=== PATIENT | female | born 1960 | race Caucasian/White ===

== ENCOUNTER → 2017-11-29 | Outpatient (CLI) | payer OTHER, BC ==
[~2017-11-29] MED LIST: AMBIEN CR12.5 MG PO; AMBIEN5 MG PO; ASPIR 8181 MG; BIOTIN PO; BIOTIN2500 MCG PO; CARAFATE1 GM PO; CEPHALEXIN500 MG PO; CYMBALTA30 MG PO; DEPAKOTE; DEPAKOTE ER500 MG PO; DIFLUCAN100 MG PO; DONNATAL E16.2 MG/5 PO; FENTANYL PATCH; FENTANYL1 EAC1 TD; GABAPENTIN100 MG PO; GINKGO BILOBA60 MG PO; HYDROCODON-ACE1 EA12 PO; KEFLEX500 MG PO; KLONOPIN1 MG PO; LAMICTAL100 MG PO; LAMICTAL200 MG PO; LAMOTRIGINE5 MG PO; LASIX40 MG PO; LEVAQUIN500 MG PO; MIDODRINE HCL2.5 MG PO; MIRALAX17 GM PO; MIRTAZAPINE15 MG PO; MULTI-VITAMIN1 EACH PO; NEURONTIN300 MG PO; NORCO 10-325 T1 EACH PO; PANTOPRAZOLE SO40 MG PO; PAROXETINE HCL20 MG PO; PAXIL20 MG PO; PENTOXIFYLLINE PO; PENTOXIFYLLINE400 MG PO; PRAVASTATIN SOD20 MG PO; PRAVASTATIN SOD40 MG PO; PROMETHAZINE HC25 M1 PO; PROTRIPTYLINE; REGLAN10 MG PO; SULFACETAMIDE; TIZANIDINE HCL2 MG PO; TIZANIDINE HCL4 M1 PO; TOPIRAMATE25 MG PO; TRAZODONE HCL150 MG PO; TRAZODONE HCL50 MG PO; ULTRAM50 MG PO; VITAMIN D1000 UNI1 PO; XANAX XR1 MG PO; XANAX XR2 MG PO; XANAX0.25 MG; XANAX1 MG PO; Z.0.AMBIEN CR12.5 MG; Z.0.LAMICTAL100 MG; Z.0.TRAZODONE HCL150 PO; Z.0.VITAMIN C500 MG PO; Z.0.ZOFRAN8 MG; Z.1.HYDROCODON-ACE1 PO; ZANAFLEX4 MG PO; ZOLPIDEM TARTRA10 MG PO; [UNRECOGNIZED DRUG - OTHER] PO; linzess PO
--- NOTE | 2017-11-29 16:21 | Diagnostic Imaging Report ---
EXAMINATION: Head CT HISTORY: Altered mental status COMPARISON: Head CT on 09/21/2017 TECHNIQUE: Multidetector axial images were obtained without contrast from the foramen magnum to the vertex . The images were reconstructed using brain and bone algorithms. Thin section brain images were reformatted into coronal and sagittal planes. Intravenous contrast: None. Motion/streaking artifact limits the evaluation of the skull base and posterior cranial fossa. FINDINGS: Parenchyma: 1. No abnormal densities. 2. No mass or hemorrhage. No CT evidence of acute territorial vascular insult. Extra-axial spaces:No abnormal density. No extra-axial fluid collections Brain volume: Normal for age. Ventricles: No hydrocephalus or displacement. Arteries: No density suggestive of thrombus. Dural sinuses: No abnormal density. Extra-axial spaces: No abnormal density. Foramen magnum: No mass, Chiari malformation, or basilar invagination. Sella: No obvious mass. Paranasal/mastoid sinuses: Imaged portions unremarkable. Skull/Scalp: No lytic or blastic lesions. No fractures. IMPRESSION: No intracranial abnormalities, no changes from head CT on 09/21/2017 Signed by: Dr. Patience Garzon M.D. on 11/29/2017 4:18 PM
== END ==
LOC: CT 14:57
PROVIDERS: ATTEND Family Medicine
DX: S06.0X0A Concussion without loss of consciousness, initial encounter (principal)
CPT/HCPCS: 70450

== ENCOUNTER 2017-12-12 18:20 | Observation (INO) | payer OTHER, BC ==
[~2017-12-12] VITALS: Ht 162.6 cm; Wt 104.3 kg
--- OUTSIDE RECORDS SUMMARY | 2017-12-12 18:24 | XMS REPORT ---
[facility] [place] Address Unknown Phone Unavailable Care Team Providers Care Culinary Assistant Name Role Phone NASIM RILEY Unavailable Unavailable MING CARMEN Unavailable Unavailable BINDU GARCIA Unavailable Unavailable Problems This patient has no known problems. Allergies, Adverse Reactions, Alerts This patient has no known allergies or adverse reactions. Medications This patient has no known medications. Results Test Description Test Time Test Comments Text Results Atomic Results Result Comments CT BRAIN WO [place] [address] Patient Name: CJ NGUYỄN MR #: [id number] : 1960 Age/Sex: 57/F Req #: [id number] Adm Physician: Ordered by: OSVALDO DAILEY, NASIM Tijerina MD Report #: [id number] Location: CT Room/Bed: Procedure: [id number] CT/CT BRAIN WO Exam Date: Exam Time: REPORT STATUS: Signed EXAMINATION: Head CT HISTORY: Altered mental status COMPARISON: Head CT on 09/21/2017 TECHNIQUE: Multidetector axial images were obtained without contrast from the foramen magnum to the vertex . The images were reconstructed using brain and bone algorithms. Thin section brain images were reformatted into coronal and sagittal planes. Intravenous contrast: None. Motion/streaking artifact limits the evaluation of the skull base and posterior cranial fossa. FINDINGS: Parenchyma: 1. No abnormal densities. 2. No mass or hemorrhage. No CT evidence of acute territorial vascular insult. Extra-axial spaces:No abnormal density. No extra-axial fluid collections Brain volume: Normal for age. Ventricles: No hydrocephalus or displacement. Arteries: No density suggestive of thrombus. Dural sinuses: No abnormal density. Extra-axial spaces: No abnormal density. Foramen magnum: No mass, Chiari malformation, or basilar invagination. Sella: No obvious mass. Paranasal/mastoid sinuses: Imaged portions unremarkable. Skull/ Scalp: No lytic or blastic lesions. No fractures. IMPRESSION: No intracranial abnormalities, no changes from head CT on 09/21/2017 Signed by : Dr. Yulissa Garzon M.D. on 11/29/2017 4:18 PM Dictated By: YULISSA GARZON MD 17 Transcribed By: HALEY on 11/29/171617 COPY TO: NASIM RILEY CT BRAIN WO [place] [address] Patient Name: CJ NGUYỄN MR #: [id number] : 1960 Age/Sex: 57/F Req #: [id number] Adm Physician: Ordered by: MING CARMEN MD Report #: [id number] Location: Room/Bed: Procedure: [id number] CT/CT BRAIN WO Exam Date: 09/21/17 Exam Time: 1230 REPORT STATUS: Signed EXAMINATION: Head CT HISTORY: Altered mental status. Status post thyroid biopsy. COMPARISON: None. TECHNIQUE: Multidetector axial images were obtained without contrast from the foramen magnum to the vertex . The images were reconstructed using brain and bone algorithms. Thin section brain images were reformatted into coronal and sagittal planes. Intravenous contrast: None. Motion/streaking artifact limits the evaluation of the skull base and posterior cranial fossa. FINDINGS: Parenchyma: 1. No abnormal densities. 2. No mass or hemorrhage. No CT evidence of acute territorial vascular insult. Extra-axial spaces:No abnormal density. No extra-axial fluid collections Brain volume: Normal for age. Ventricles: No hydrocephalus or displacement. Arteries: No density suggestive of thrombus. Dural sinuses: No abnormal density. Extra-axial spaces: No abnormal density. Foramen magnum: No mass, Chiari malformation, or basilar invagination. Sella: No obvious mass. Paranasal/mastoid sinuses : Imaged portions unremarkable. Skull/Scalp: No lytic or blastic lesions. No fractures. IMPRESSION: No intracranial abnormalities, particularly no hemorrhage or acute cortical infarcts. Signed by: Dr. Yulissa Garozn M.D. on 09/21/2017 1:41 PM Dictated By: YULISSA GARZON MD 1341 Transcribed By: HALEY on 09/21/17 1341 COPY TO: MING CARMEN MD CT SOFT TISSUE NECK WO [place] [address] Patient Name: CJ NGUYỄN MR #: [id number] : 1960 Age/Sex: 57/F Req #: [id number] Adm Physician: Ordered by: MING CARMEN MD Report #: [id number] Location: ER Room/Bed: Procedure: [id number] CT/CT SOFT TISSUE NECK WO Exam Date: 09/21/17 Exam Time: 1230 REPORT STATUS: Signed EXAMINATION: CT of the neck without contrast HISTORY: Status post thyroid gland biopsy, altered mental status, wheezing COMPARISON: Cervical spine CT on 2016 TECHNIQUE: Multidetector helical axial images were obtained from the sternal notch through the skull base without intravenous infusion. Images were reconstructed using soft tissue and bone algorithms and were viewed in multiplanar format. FINDINGS: Lack of IV contrast limits the evaluation of the vessels and lymph nodes. Mass: None. Nodes: No lymphadenopathy. Sinuses: Imaged portions unremarkable. Oral cavity: Unremarkable. Salivary glands: Parotid and submandibular glands unremarkable. Pharynx: Unremarkable. Larynx: Unremarkable. Thyroid gland: Unchanged diffusely enlarged thyroid line with large dominant nodule in the right lobe when compared to cervical spine CT on 05/24/2017, persistent minimal mass effect upon the trachea without stenosis. Upper esophagus: Unremarkable. Blood vessels : Cannot be evaluated in this unenhanced study Bones: Unremarkable. IMPRESSION: 1. No acute neck abnormalities particularly no hematoma or occlusion of the airway. 2. Grossly unchanged right thyroid nodule. Signed by: Dr. Yulissa Garzon M.D. on 09/21/2017 1:44 PM Dictated By: YULISSA GARZON MD 1344 Transcribed By: HALEY on 09/21/17 1344 COPY TO: MING CARMEN MD CHEST SINGLE (PORTABLE) [place] [address] Patient Name: CJ NGUYỄN MR #: [id number] : 1960 Age/Sex: 57/F Req #: [id number] Adm Physician: Ordered by: MING CARMEN MD Report #: [id number] Location: ER Room/Bed: Procedure: [id number] DX/CHEST SINGLE (PORTABLE) Exam Date: 09/21/17 Exam Time: 1130 REPORT STATUS: Signed PROCEDURE: CHEST SINGLE (PORTABLE) COMPARISON: None. INDICATIONS: AMS FINDINGS: LUNGS: No consolidations or edema. PLEURA: No effusions or pneumothorax. HEART T MEDIASTINUM: The heart is within normal size- limits. BONES T SOFT TISSUES: No acute findings. Spinal stimulator leads overlying the mid thoracic spine. CONCLUSION: No acute thoracic abnormality. Minoo Singleton D.O. Dictated by: Minoo Singleton D.O. on 09/21/2017 at 11:54 Electronically approved by: Minoo Singleton D.O. on 09/21/2017 at 11:54 Dictated By: MINOO SINGLETON DO 1154 Transcribed By: CAROLINE on 09/21/17 1154 COPY TO: MING CARMEN MD FNA THYROID [place] [address] Patient Name: CJ NGUYỄN MR #: [id number] : 1960 Age/Sex: 57/F Req #: [id number] Adm Physician: Ordered by: RADHA DAILEY, BIDNU DAILEY Report #: [id number] Location: US Room/Bed: Procedure: [id number] US/ FNA THYROID Exam Date: 09/21/17 Exam Time: 0931 REPORT STATUS: Signed PROCEDURE: BIOPSY THYROID FNA COMPARISON: Patients [facility], US, US GUIDANCE FOR PROCEDURE, 09/21/2017 and outside thyroid ultrasound from [facility] dated 2016. INDICATIONS: Thyroid Nodule FINDINGS: Written and verbal consent were obtained. Patient was placed supine. Preliminary ultrasound of the right thyroid lobe identified dominant nodule with a hypoechoic rim. A safe entry route was identified and the overlying skin was prepped and draped in usual sterile fashion. Lidocaine 1% was used for local pain control. A total of 4 FNA biopsies was performed utilizing 25 gauge needles. The patient tolerated the procedure well and there were no immediate post-procedural complications. Adequacy check was performed by the Pathologist. CONCLUSION: Successful ultrasound-guided right thyroid nodule FNA. Minoo Singleton D.O. Dictated by: Minoo Singleton D.O. on 09/21/2017 at 12:00 Electronically approved by: Minoo Singleton D.O. on 09/21/2017 at 12:00 Dictated By: MINOO SINGLETON DO 1200 Transcribed By: CAROLINE on 09/21/17 1200 COPY TO: BINDU GARCIA GUIDANCE FOR PROCEDURE [place] [address] Patient Name: CJ NGUYỄN MR #: [id number] : 1960 Age/Sex: 57/F Req #: [id number] Adm Physician: Ordered by: BINDU GARCIA MD, MD Report #: [id number] Location: US Room/Bed: Procedure: [id number] US/US GUIDANCE FOR PROCEDURE Exam Date: 09/21/17 Exam Time: 0931 REPORT STATUS: Signed PROCEDURE: ULTRASOUND GUIDANCE FOR PROCEDURE COMPARISON: Outside thyroid ultrasound from [facility] dated 08/07/2017 INDICATIONS: Thyroid Nodule FINDINGS: PROCEDURE: ULTRASOUND GUIDED RIGHT THYROID NODULE BIOPSY SPECIMENS: 4 FNA biopsies utilizing a 25 gauge needle. FINDINGS: Informed consent was obtained. Ultrasound was used to identify the previously described dominant 2.7 cm right thyroid lobe nodule. The overlying skin was prepped and draped in the usual sterile fashion. Lidocaine 1% was infiltrated into the subcutaneous tissues for local anesthesia. A total of 4 FNA passes with 25 gauge needles was performed utilizing ultrasound real-time guidance. Adequacy check was performed by the Pathologist. CONCLUSION: Successful ultrasound-guided right thyroid nodule FNA. Minoo Singleton D.O. Dictated by: Minoo Singleton D.O. on 09/21/2017 at 11:50 Electronically approved by: Minoo Singleton D.O. on 09/21/2017 at 11:50 Dictated By: MINOO SINGLETON DO 1150 Transcribed By: CAROLINE on 09/21/17 1150 COPY TO: BINDU GARCIA
[2017-12-12] MEDS ORDERED: SODIUM CHLORIDE 0.9% 1000ML 1,000 ML IV ONE ×2 (19:30)
[2017-12-12 19:46] LABS: BASOPHILS # (AUTO) 0.1 (0.0-0.1); BASOPHILS % 0.5 % (0.0-1.0); EOSINOPHILS # (AUTO) 0.2 (0.0-0.4); EOSINOPHILS % 1.3 % (0.0-6.0); HEMATOCRIT 38.3 % (34.2-44.1); HEMOGLOBIN 11.8 g/dL (12.0-16.0); LYMPHOCYTES # (AUTO) 2.1 (1.0-3.2); LYMPHOCYTES % 18.2 % (18.0-39.1); MEAN CORPUSCULAR HGB CONC 30.8 g/dL (31-35); MEAN CORPUSCULAR VOLUME 90.8 fL (81-99); MONOCYTES # (AUTO) 1.1 (0.2-0.8); MONOCYTES % 9.2 % (4.4-11.3); NEUTROPHILS # (AUTO) 8.2 (2.1-6.9); NEUTROPHILS % 69.9 % (38.7-80.0); PLATELET COUNT 291 x10e3/uL (140-360); RED BLOOD COUNT 4.22 x10e6/uL (3.6-5.1); RED CELL DISTRIBUTION WIDTH 14.6 % (11.7-14.4)
[2017-12-12 20:12] LABS: ALBUMIN 3.9 g/dL (3.5-5.0); ANION GAP 19.7 mmol/L (8-16); CALCIUM 8.8 mg/dL (8.4-10.2); CREATININE, SERUM 1.39 mg/dL (0.57-1.11); POTASSIUM 4.7 mmol/L (3.5-5.1)
[2017-12-12 20:23] LABS: CREATINE KINASE MB 1.6 ng/mL (0.00-5.00)
[2017-12-12 21:39] LABS: BILIRUBIN,URINE NEGATIVE (NEGATIVE); KETONES,URINE NEGATIVE (NEGATIVE); LEUKOCYTE ESTERASE ,URINE NEGATIVE (NEGATIVE); NITRITE,URINE NEGATIVE (NEGATIVE); PROTEIN,URINE DIPSTICK NEGATIVE (NEGATIVE); URINE UROBILINOGEN 0.2 mg/dL (0.2 - 1)
[2017-12-12 21:42] LABS: CLARITY,URINE CLEAR (CLEAR); COLOR,URINE YELLOW (YELLOW)
[2017-12-12 21:46] LABS: AMPHETAMINES SCREEN,URINE NEGATIVE (NEGATIVE); BENZODIAZEPINES SCREEN,URINE POSITIVE (NEGATIVE); PHENCYCLIDINE SCREEN,URINE NEGATIVE (NEGATIVE)
[2017-12-12 21:56] LABS: EPITHELIAL CELLS,URINE FEW /LPF; RBC,URINE 0-5 /HPF (0-5)
--- NOTE | 2017-12-12 22:23 | Diagnostic Imaging Report ---
EXAMINATION: CHEST XRAY LINE PLACEMENT INDICATION: PICC line placement. COMPARISON: None FINDINGS: TUBES and LINES: Right upper extremity PICC line with distal tip overlying the mid SVC. Partially visualized thoracic spinal canal neurostimulator with distal tip at the mid thoracic spine at T7. LUNGS: Lungs are not well inflated. Lungs are clear. There is mild prominence of the central pulmonary vasculature, consistent with pulmonary venous congestion. PLEURA: No pleural effusion or pneumothorax. HEART AND MEDIASTINUM: The cardiomediastinal silhouette is unremarkable. BONES AND SOFT TISSUES: No acute osseous lesion. Soft tissues are unremarkable. UPPER ABDOMEN: No free air under the diaphragm. IMPRESSION: No acute thoracic abnormality. Signed by: Dr. Tonny Aguilar M.D. on 12/12/2017 10:20 PM
--- NOTE | 2017-12-12 22:24 | Diagnostic Imaging Report ---
LOWER LEG LEFT HISTORY: Weakness, pain COMPARISON: None FINDINGS: Bones: Acute, comminuted fracture of the distal left tibial diaphysis, associated with old, partially healed fracture of the distal left fibula. Osseous alignment is within normal limits. Joints: The joint spaces are well-maintained. Soft tissues: Mild soft tissue edema throughout the left lower leg IMPRESSION: 1. Acute, comminuted fracture of the distal left tibial diaphysis. 2. Posttraumatic, old, changes of the distal left fibula are noted. Signed by: Dr. Tonny Aguilar M.D. on 12/12/2017 10:21 PM
--- NOTE | 2017-12-12 22:25 | Diagnostic Imaging Report ---
ANKLE 3+ VIEWS LEFT HISTORY: Weakness, pain COMPARISON: None FINDINGS: Bones: Acute, comminuted fracture of the distal left tibial diaphysis, associated with old, partially healed fracture of the distal left fibula. Osseous alignment is within normal limits. Plantar and posterior calcaneal enthesophytes. Joints: Mild degenerative changes of the tibiotalar and intertarsal joints. Soft tissues: Mild soft tissue edema throughout the left lower leg IMPRESSION: 1. Acute, comminuted fracture of the distal left tibial diaphysis. 2. Posttraumatic, old, changes of the distal left fibula are noted. Signed by: Dr. Tonny Aguilar M.D. on 12/12/2017 10:22 PM
--- NOTE | 2017-12-12 22:26 | Diagnostic Imaging Report ---
KNEE LEFT THREE VIEWS HISTORY: Weakness. COMPARISON: None FINDINGS: Bones: No displaced fracture. Osseous alignment is within normal limits. Joints: The joint spaces are well-maintained. Soft tissues: The soft tissues appear unremarkable. IMPRESSION: No acute radiographic abnormality. Signed by: Dr. Tonny Aguilar M.D. on 12/12/2017 10:23 PM
[2017-12-12] MEDS ORDERED: TRAMADOL HCL 50 MG TAB PO ONE (23:30)
[2017-12-12] MEDS ORDERED: SODIUM CHLORIDE 0.9% 1000ML 1,000 ML IV SCH (23:36)
[2017-12-12] MEDS ORDERED: ONDANSETRON HCL INJ 2 MG/ML VIAL IV PRN (23:45)
[2017-12-12] MEDS ORDERED: TRAMADOL HCL 50 MG TAB PO PRN (23:45)
[2017-12-13] MEDS ORDERED: KETOROLAC TROMETHAMINE 30 MG/ML VIAL IV STA (02:18)
[2017-12-13 05:22] LABS: BASOPHILS % 0.4 % (0.0-1.0); EOSINOPHILS # (AUTO) 0.1 (0.0-0.4); EOSINOPHILS % 0.5 % (0.0-6.0); HEMATOCRIT 32.9 % (34.2-44.1); HEMOGLOBIN 10.3 g/dL (12.0-16.0); LYMPHOCYTES # (AUTO) 1.1 (1.0-3.2); MEAN CORPUSCULAR HEMOGLOBIN 28.1 pg (28-32); MEAN CORPUSCULAR HGB CONC 31.3 g/dL (31-35); MEAN CORPUSCULAR VOLUME 89.9 fL (81-99); MONOCYTES # (AUTO) 1.1 (0.2-0.8); MONOCYTES % 9.9 % (4.4-11.3); NEUTROPHILS # (AUTO) 8.8 (2.1-6.9); NEUTROPHILS % 78.6 % (38.7-80.0); PLATELET COUNT 232 x10e3/uL (140-360); RED BLOOD COUNT 3.66 x10e6/uL (3.6-5.1); RED CELL DISTRIBUTION WIDTH 14.6 % (11.7-14.4)
[2017-12-13 05:38] LABS: ALANINE AMINOTRANSFERASE 41 IU/L (0-55); ALBUMIN 3.2 g/dL (3.5-5.0); ALBUMIN/GLOBULIN RATIO 1.1 (0.8-2.0); ALKALINE PHOSPHATASE 116 IU/L (40-150); ANION GAP 13.8 mmol/L (8-16); BLOOD UREA NITROGEN 11 mg/dL (7-26); BUN/CREATININE RATIO 13 (6-25); CALCIUM 7.9 mg/dL (8.4-10.2); CARBON DIOXIDE 21 mmol/L (22-29); CHLORIDE 110 mmol/L (98-107); CREATININE, SERUM 0.83 mg/dL (0.57-1.11); EST GLOMERULAR FILTRATION RATE > 60 ML/MIN (60-); GLUCOSE 127 mg/dL (74-118); POTASSIUM 3.8 mmol/L (3.5-5.1); SODIUM 141 mmol/L (136-145)
[2017-12-13 10:43] VITALS: BP 113/66
--- NOTE | 2017-12-13 11:02 | Discharge Summary ---
FINAL DIAGNOSIS: Left distal tibial comminuted fracture. SECONDARY DIAGNOSES 1. Acute renal failure, resolved. 2. Metabolic acidosis, resolving. 3. Morbid obesity. 4. Previous left distal fibula fracture. 5. Chronic back pain with back surgeries. 6. Hypertension. 7. Seizure disorder. 8. Migraines. 9. Asthma disorder. CONSULTANTS: None. PROCEDURES AND STUDIES PERFORMED: X-ray. HISTORY: Per H and P. HOSPITAL COURSE: The patient was admitted initially hypotensive. With hydration, this has resolved. Her creatinine is normal now. Her urine tox screen also showed benzodiazepines. I have informed the patient and her that the combination of benzodiazepines, narcotics and dehydration probably caused her to fall, resulting in this fracture. At this time, nothing can be done until the swelling gets better. She is to be nonweightbearing on the left side. She will follow up with the orthopedic doctor as an outpatient. She will also follow up with Dr. Cazares. Mostly, she will be using the wheelchair in the meantime. CONDITION ON DISCHARGE: Stable. DISCHARGE MEDICATIONS: Please see medication reconciliation form. LAYA OROZCO M.D. Job#: [id number]
--- OUTSIDE RECORDS SUMMARY | 2017-12-27 10:53 | XMS REPORT | Continuity of Care Document ---
Author Author [facility] Organization [facility] Address [address] [place] [address] Phone Unavailable Care Team Providers Care Clinical Dental Technician Name Role Phone NASIM RILEY PCP Insurance Providers Guarantor Vandana Pretty Address [address] [place] [address] Email [email or web address] Payer [facility] Ppo Policy Number [id number] Subscriber's Name Keily Pretty A Relationship 01 Group Number [id number] Group Name [employer] Effective Date 15 Payer [facility] Care Policy Number [id number] Subscriber's Name Vandana Pretty Relationship 18 Self / Same As Patient Group Number [id number] Group Name [employer] EMPLOYEE G Effective Date 10 Advance Directives Directive Response Recorded Date/Time Does the patient have an advance directive? Yes 12/19/17 12:38pm If yes, is advance directive on file with [facility]? No 12/19/17 12:38pm If not on file with [facility] will patient provide a copy? Yes 12/19/17 12:38pm Do you have a Directive to Physician? No 12/18/17 3:41pm Do you have a Medical Power of Midwife Practitioner? Yes 12/18/17 3:41pm Do you have an out of hospital Do Not Resuscitate Order? No 12/18/17 3:41pm Do you have any special needs we should be aware of? No 12/18/17 3:41pm Do you have a support person here with you today? Yes 12/18/17 3:41pm Did patient receive Notice of Privacy Practices? Yes 12/18/17 3:41pm Did patient receive patient rights and responsibilities? Yes 12/18/17 3:41pm Problems Medical Problem Onset Date Status Abdominal pain 07/02/2014 Acute Altered mental status 07/04/2014 Acute Cellulitis Unknown Chest pain 07/02/2014 Acute Chronic pain Unknown Closed left ankle fracture Unknown Complicated migraine Unknown Acute Dehydration Unknown Dyspnea Unknown Fever 07/02/2014 Acute Hyperkalemia 07/04/2014 Acute Hypotension Unknown Lower extremity edema Unknown Migraine headache 02/14/2016 Acute Monocular visual disturbance Unknown Acute Opiate overdose 06/30/2016 Acute Rhabdomyolysis 06/30/2016 Acute Syncope 07/04/2014 Acute Urinary tract infection Unknown Acute Volume depletion Unknown Medications Current Home Medications Medication Dose Units Route Directions Days Qty Instructions Start Date Furosemide (Lasix) 40 Mg Tablet 40 Mg Oral As Needed 30 Tab Gabapentin 100 Mg Capsule 100 Mg Oral Three Times A Day for Pain 30 Days 12/13/16 Hydrocodone Bit/Acetaminophen ([place] 7.5-325 Tablet) 1 Each Tablet 1 Ea Oral Every 4 Hours as needed for Pain Lamotrigine (Lamictal) 100 Mg Tab 100 Mg Oral Three Times A Day Linzess 290 Mg Oral As Needed Promethazine Hcl 25 Mg Tablet 25 Mg Oral As Needed Topiramate 25 Mg Tablet 0 Oral Daily 30 Tab Zolpidem Tartrate (Ambien) 10 Mg Tablet 12.5 Mg Oral Bedtime as needed for Insomnia 30 Tab Past Home Medications Medication Directions Ordered Status Alprazolam (Xanax Xr) 1 Mg Tab.er.24h, 1 Mg Oral As Needed Discontinued Alprazolam (Xanax) 0.25 Mg Tablet, Discontinued Alprazolam (Xanax Xr) 2 Mg Tab.er.24h, 2 Mg Oral Twice A Day Discontinued Alprazolam (Xanax*) 1 Mg Tablet, 1 Mg Oral Three Times A Day Discontinued Ascorbic Acid (Vitamin C) 500 Mg Capsule.sa, 500 Mg Oral Daily Discontinued Aspirin (Aspir 81) 81 Mg Tablet.dr, Discontinued Biotin 2,500 Mcg Capsule, 5000 Mcg Oral Daily Discontinued Biotin 5 Mg Capsule, 5 Mg Oral Daily Discontinued Cephalexin 500 Mg Capsule, 500 Mg Oral Twice A Day Discontinued Cephalexin Monohydrate (Keflex) 500 Mg Capsule, 500 Mg Oral Three Times A Day Discontinued Cholecalciferol (Vitamin D3) (Vitamin D) 1,000 Unit Tablet, 1000 Unit Oral Daily Discontinued Clonazepam (Klonopin) 1 Mg Tablet, 0.5 Mg Oral Every 8 Hours Discontinued Depakote , Discontinued Fentanyl Patch , Q 3 Days Discontinued Fluconazole (Diflucan) 100 Mg Tablet, 100 Mg Oral Daily 02/19/16 Discontinued Gabapentin 100 Mg Capsule, Mg Oral Discontinued Ginkgo Biloba 60 Mg Tablet, 60 Mg Oral Twice A Day Discontinued Hydrocodone Bit/Acetaminophen ([place] 10-325 Tablet) 1 Each Tablet, 1 Tab Oral Every 4 Hours as needed Discontinued Hydrocodone Bit/Acetaminophen (Hydrocodon-Acetaminoph 7.5-300) 1 Each Tablet, 1 Each Oral As Needed Discontinued Lamotrigine 5 Mg Tb.chw.dsp, Mg Oral Discontinued Lamotrigine (Lamictal) 200 Mg Tablet, 300 Mg Oral Daily Discontinued Lamotrigine (Lamictal) 100 Mg Tablet, 1 Tab Every Morning Discontinued Lamotrigine (Lamictal) 100 Mg Tablet, 2 Tab Qhs Discontinued Levofloxacin (Levaquin) 500 Mg Tablet, 500 Mg Oral Daily Discontinued Midodrine Hcl 2.5 Mg Tablet, 0 Oral Discontinued Mirtazapine 15 Mg Tab, 30 Mg Oral Bedtime 12/13/16 Discontinued Multivitamin (Multi-Vitamin Daily) 1 Each Tablet, 1 Tab Oral Daily Discontinued Ondansetron Hcl (Zofran) 8 Mg Tablet, As Needed Discontinued Pantoprazole Sodium (Protonix) 40 Mg Tablet., 40 Mg Oral Daily Discontinued Pantoprazole Sodium (Protonix) 40 Mg Tablet.dr, 40 Mg Oral Twice A Day Discontinued Paroxetine Hcl 20 Mg Tablet, 40 Mg Oral Daily Discontinued Paroxetine Hcl (Paxil) 20 Mg Tablet, 20 Mg Oral Daily 02/19/16 Discontinued Pentoxifylline 100 Gm Powder, 400 Mg Oral Bedtime Discontinued Phenobarb/Hyoscy/Atropine/Scop ( Elixir) 16.2 Mg/5 Ml Elixir, 5 Ml Oral Three Times A Day Discontinued Polyethylene Glycol 3350 (Miralax) 17 Gm Powd.pack, 1 - 2 Tab Oral Daily Discontinued Pravastatin Sodium 20 Mg Tablet, 20 Mg Oral Bedtime Discontinued Pravastatin Sodium 40 Mg Tablet, 40 Mg Oral Daily Discontinued Protriptyline Hcl 10 Mg Tablet, 3 Tab Twice A Day Discontinued Sucralfate (Carafate) 1 Gm Tablet, 1 Gm Oral Three Times A Day 02/19/16 Discontinued Sulfacetamide Sod,Monohydrate (Sulfacetamide Sod Monohydrate) 500 Gm Powder, Discontinued Tizanidine Hcl 4 Mg Capsule, 4 Mg Oral Three Times A Day Discontinued Tizanidine Hcl 2 Mg Tablet, 2 Mg Oral Discontinued Tizanidine Hcl (Zanaflex) 4 Mg Tablet, 4 Mg Oral Three Times A Day Discontinued Tramadol Hcl (Ultram) 50 Mg Tablet, 50 Mg Oral Every 6 Hours as needed for Pain Discontinued Trazodone Hcl 50 Mg Tablet, 150 Mg Oral Three Times A Day Discontinued Trazodone Hcl 150 Mg Tablet, 150 Mg Oral Qhs Discontinued Trazodone Hcl 150 Mg Tablet, 150 Mg Oral 1-3 Times Daily Discontinued Vitamin B Complex 1 Each Capsule, 1 Each Oral Daily Discontinued Zolpidem Tartrate 10 Mg Tablet, 12.5 Mg Oral Bedtime Discontinued Zolpidem Tartrate (Ambien Cr) 12.5 Mg Tabcr, 12.5 Mg Oral At Bedtime Discontinued Zolpidem Tartrate (Ambien Cr) 12.5 Mg Tabcr, 12.5 Mg Oral Bedtime Discontinued Zolpidem Tartrate (Ambien Cr) 12.5 Mg Tab.mphase, Qhs Discontinued Social History Social History Problem Response Recorded Date/Time Onset Date Status Hx Psychiatric Problems No 12/19/2017 12:38pm Not Applicable Not Applicable Hx Eating Disorder No 12/19/2017 12:38pm Not Applicable Not Applicable Hx Substance Use Disorder No 12/19/2017 12:38pm Not Applicable Not Applicable Hx Depression No 12/19/2017 12:38pm Not Applicable Not Applicable Hx Alcohol Use No 12/19/2017 12:38pm Not Applicable Not Applicable Hx Substance Use Treatment No 12/19/2017 12:38pm Not Applicable Not Applicable Hx Physical Abuse No 12/19/2017 12:38pm Not Applicable Not Applicable Hospital Discharge Instructions No hospital discharge instruction information available. Plan of Care Discharge Date 12/20/17 3:12pm Disposition HOME, SELF-CARE Instructions/Education Provided Post Operative Pain Prescriptions See Medication Section Referrals (Orthopedic) Order Date: 12/28/2017 Entered Date: 12/20/2017 8:56am Additional Instructions/Education TOUCH DOWN WEIGHT BEARING TO LEFT LEG. USE WALKER TO AMBULATE. FOLLOW UP NEXT WEEK WITH DR. MEJIA, CALL TO MAKE APPOINTMENT. Functional Status Query Response Date Recorded FUNCTIONAL STATUS . December 19, 2017 2:01pm Ambulation Ability Moderate Assistance December 19, 2017 12:41pm Toileting Ability Minimum Assistance December 20, 2017 1:18pm Allergies, Adverse Reactions, Alerts Allergen Type Severity Reaction Status Last Updated Iodinated Contrast- Oral and IV Dye Allergy Unknown HIGH TEMP, SWELLING Active 08/30/16 Divalproex sodium Allergy Unknown CHF Active 12/18/17 Nickel Allergy Intermediate Active 05/24/17 Rofecoxib Allergy Mild FEVER, SWELLING Active 02/14/16 shrimp Allergy Unknown Active 02/14/16 Immunizations No immunization information available. Vital Signs Acute Vital Signs Vital Response Date/Time Temperature (Fahrenheit) 97.1 degrees F (97.6 - 99.5) 12/20/2017 12:37pm Pulse Pulse Rate (adult) 55 bpm (60 - 90) 12/20/2017 12:37pm Respiratory Rate 18 bpm (12 - 24) 12/20/2017 12:37pm Blood Pressure 134/63 mm Hg 12/20/2017 12:37pm Height 5 ft 4 in 12/19/2017 12:38pm Weight 230 lb 12/19/2017 12:38pm Body Mass Index 39.5 kg/m^2 12/19/2017 12:38pm Results Laboratory Results Test Name Result Units Flags Reference Collection Date/Time Result Date/ Time Comments Prothrombin Time 9.8 seconds L 11.9-14.5 09/21/2017 11:15am 09/21/2017 4 :51pm Prothromb Time International Ratio 0.93 09/21/2017 11:15am 2016 4:51pm Oral Anticoagulant Therapy INR Values: 1. Low Intensity Therapy 1.5 - 2.0 2. Moderate Intensity Therapy 2.0 - 3.0 3. High Intensity Therapy(1) 2.5 - 3.5 4. High Intensity Therapy(2) 3.0 - 4.0 5. Panic Value INR > 5.0 Activated Partial Thromboplast Time 25.9 seconds 23.8-35.5 09/21/2017 11 :15am 09/21/2017 4:51pm Arterial Blood pH 7.30 L 7.31-7.41 09/21/2017 6:58pm 09/21/2017 7: 13pm Arterial Blood Partial Pressure CO2 66 mmHg *H 41-51 09/21/2017 6:58pm 7:13pm Results called to ER at 1905 on 09/21/17 by Venkatesh Stone. RB OK. Arterial Blood Partial Pressure O2 364 mmHg H 80-105 09/21/2017 6:58pm 09/21/2017 7:13pm Arterial Blood HCO3 33 mmol/L H 23-28 09/21/2017 6:58pm 09/21/2017 7: 13pm Arterial Blood Base Excess 6.0 mmol/L H -2 - 3 09/21/2017 6:58pm 2016 7:13pm Arterial Blood Oxygen Saturation 100.0 % H 95-98 09/21/2017 6:58pm 09/21 7:13pm White Blood Count 11.20 x10e3/uL H 4.8-10.8 12/13/2017 5:15am 2017 5:25am Red Blood Count 3.66 x10e6/uL 3.6-5.1 12/13/2017 5:15am 12/13/2017 5: 25am Hemoglobin 10.3 g/dL L 12.0-16.0 12/13/2017 5:1512/13/2017 5:25am Hematocrit 32.9 % L 34.2-44.1 12/13/2017 5:1512/13/2017 5:25am Mean Corpuscular Volume 89.9 fL 81-99 12/13/2017 5:15am 12/13/2017 5: 25am Mean Corpuscular Hemoglobin 28.1 pg 28-32 12/13/2017 5:15am 12/13/2017 5:25am Mean Corpuscular Hemoglobin Concent 31.3 g/dL 31-35 12/13/2017 5:15am 12/13/2017 5:25am Red Cell Distribution Width 14.6 % H 11.7-14.4 12/13/2017 5:152017 5:25am Platelet Count 232 x10e3/uL 140-360 12/13/2017 5:12/13/2017 5: 25am Neutrophils (%) (Auto) 78.6 % 38.7-80.0 12/13/2017 5:1512/13/2017 5: 25am Lymphocytes (%) (Auto) 10.0 % L 18.0-39.1 12/13/2017 5:1512/13/2017 5 :25am Monocytes (%) (Auto) 9.9 % 4.4-11.3 12/13/2017 5:12/13/2017 5: 25am Eosinophils (%) (Auto) 0.5 % 0.0-6.0 12/13/2017 5:12/13/2017 5: 25am Basophils (%) (Auto) 0.4 % 0.0-1.0 12/13/2017 5:12/13/2017 5:25am IM GRANULOCYTES % 0.6 % 0.0-1.0 12/13/2017 5:12/13/2017 5:25am Neutrophils # (Auto) 8.8 H 2.1-6.9 12/13/2017 5:12/13/2017 5: 25am Lymphocytes # (Auto) 1.1 1.0-3.2 12/13/2017 5:12/13/2017 5:25am Monocytes # (Auto) 1.1 H 0.2-0.8 12/13/2017 5:12/13/2017 5:25am Eosinophils # (Auto) 0.1 0.0-0.4 12/13/2017 5:15am 12/13/2017 5:25am Basophils # (Auto) 0.0 0.0-0.1 12/13/2017 5:12/13/2017 5:25am Absolute Immature Granulocyte (auto 0.07 x10e3/uL 0-0.1 12/13/2017 5: 1512/13/2017 5:25am Urine Color YELLOW YELLOW 12/12/2017 9:30pm 12/12/2017 9:49pm Urine Clarity CLEAR CLEAR 12/12/2017 9:30pm 12/12/2017 9:49pm Urine Specific [place] 1.010 1.010-1.025 12/12/2017 9:30pm 2017 9:49pm Urine pH 5 5 - 7 12/12/2017 9:30pm 12/12/2017 9:49pm Urine Leukocyte Esterase NEGATIVE NEGATIVE 12/12/2017 9:30pm 2017 9:49pm Urine Nitrite NEGATIVE NEGATIVE 12/12/2017 9:30pm 12/12/2017 9:49pm Urine Protein NEGATIVE NEGATIVE 12/12/2017 9:30pm 12/12/2017 9:49pm Urine Glucose (UA) NEGATIVE NEGATIVE 12/12/2017 9:30pm 12/12/2017 9: 49pm Urine Ketones NEGATIVE NEGATIVE 12/12/2017 9:30pm 12/12/2017 9:49pm Urine Opiates Screen NEGATIVE NEGATIVE 12/12/2017 9:30pm 12/12/2017 9 :46pm Urine Barbiturates Screen NEGATIVE NEGATIVE 12/12/2017 9:30pm 2017 9:46pm Urine Phencyclidine Screen NEGATIVE NEGATIVE 12/12/2017 9:30pm 2017 9:46pm Urine Amphetamines Screen NEGATIVE NEGATIVE 12/12/2017 9:30pm 2017 9:46pm Urine Methamphetamines Screen NEGATIVE NEGATIVE 12/12/2017 9:30pm 04/2018 9:46pm Urine Benzodiazepines Screen POSITIVE H NEGATIVE 12/12/2017 9:30pm 04/2018 9:46pm This test provides only a screen. Positive results should be repeated by a confirmatory test. Urine Cocaine Screen NEGATIVE NEGATIVE 12/12/2017 9:30pm 12/12/2017 9 :46pm Urine Cannabinoids Screen NEGATIVE NEGATIVE 12/12/2017 9:30pm 2017 9:46pm THESE RESULTS ARE FOR MEDICAL TREATMENT ONLY *THIS REPORT CONTAINS UNCONFIRMED SCREENING RESULTS* POSITIVE RESULTS WILL BE CONFIRMED BY REFERENCE LAB UPON REQUEST CUT-OFF DRUG CLASS CONCENTRATION ng/mL Amphetamines 1000 Methamphetamines 1000 Cocaine 300 Opiate 300 Phencyclidine 25 Cannabinoid 50 Barbiturates 300 Benzodiazepine 300 Methadone 300 Urine Methadone Screen NEGATIVE NEGATIVE 12/12/2017 9:30pm 2017 9:46pm THESE RESULTS ARE FOR MEDICAL TREATMENT ONLY *THIS REPORT CONTAINS UNCONFIRMED SCREENING RESULTS* POSITIVE RESULTS WILL BE CONFIRMED BY REFERENCE LAB UPON REQUEST CUT-OFF DRUG CLASS CONCENTRATION ng/mL Amphetamines 1000 Methamphetamines 1000 Cocaine Metabolite 300 Opiate 300 Phencyclidine 25 Cannabinoid 50 Barbiturates 300 Benzodiazepine 300 Methadone 300 Urine Urobilinogen 0.2 mg/dL 0.2 - 1 12/12/2017 9:30pm 12/12/2017 9: 49pm Urine Bilirubin NEGATIVE NEGATIVE 12/12/2017 9:30pm 12/12/2017 9: 49pm Urine Blood 1+ H NEGATIVE 12/12/2017 9:30pm 12/12/2017 9:49pm Urine WBC NONE /HPF 0-5 12/12/2017 9:30pm 12/12/2017 9:56pm Urine RBC 0-5 /HPF 0-5 12/12/2017 9:30pm 12/12/2017 9:56pm Urine Bacteria NONE /HPF NONE 12/12/2017 9:30pm 12/12/2017 9:56pm Urine Epithelial Cells FEW /LPF NONE 12/12/2017 9:30pm 12/12/2017 9: 56pm Sodium Level 141 mmol/L # 136-145 12/13/2017 5:15am 12/13/2017 5:40am Potassium Level 3.8 mmol/L 3.5-5.1 12/13/2017 5:15am 12/13/2017 5:40am Chloride Level 110 mmol/L H 98-107 12/13/2017 5:15am 12/13/2017 5:40am Carbon Dioxide Level 21 mmol/L L 22-12/13/2017 5:15am 12/13/2017 5: 40am Anion Gap 13.8 mmol/L 8-16 12/13/2017 5:15am 12/13/2017 5:40am Blood Urea Nitrogen 11 mg/dL 7-12/13/2017 5:15am 12/13/2017 5:40am Creatinine 0.83 mg/dL 0.57-1.11 12/13/2017 5:15am 12/13/2017 5:40am BUN/Creatinine Ratio 13 6-25 12/13/2017 5:15am 12/13/2017 5:40am Estimat Glomerular Filtration Rate > 60 ML/MIN 60- 12/13/2017 5:15am 5:40am Ranges were taken from the National Kidney Disease Education Program and the National Kidney Foundation literature. Reference ranges: 60 or greater: Normal 16-59 (for 3 consecutive months): Chronic kidney disease 15 or less: Kidney failure Glucose Level 127 mg/dL H 74-118 12/13/2017 5:15am 12/13/2017 5:40am Calcium Level 7.9 mg/dL L 8.4-10.2 12/13/2017 5:1512/13/2017 5:40am Lactic Acid Level 21.0 MG/DL H 4.5-19.8 12/12/2017 7:45pm 12/12/2017 8: 18pm Total Bilirubin 0.5 mg/dL 0.2-1.2 12/13/2017 5:15am 12/13/2017 5:40am Aspartate Amino Transf (AST/SGOT) 73 IU/L H 5-34 12/13/2017 5:15am 12/13 5:40am Alanine Aminotransferase (ALT/SGPT) 41 IU/L 0-55 12/13/2017 5:1505/2018 5:40am Total Protein 6.0 g/dL # L 6.5-8.1 12/13/2017 5:15am 12/13/2017 5:40am Albumin 3.2 g/dL L 3.5-5.0 12/13/2017 5:1512/13/2017 5:40am Globulin 2.8 g/dL 2.3-3.5 12/13/2017 5:15am 12/13/2017 5:40am Albumin/Globulin Ratio 1.1 0.8-2.0 12/13/2017 5:1512/13/2017 5: 40am Alkaline Phosphatase 116 IU/L 40-150 12/13/2017 5:15am 12/13/2017 5: 40am Creatine Kinase 117 IU/L 29-168 12/12/2017 7:30pm 12/12/2017 8:13pm Creatine Kinase MB 1.60 ng/mL 0.00-5.00 12/12/2017 7:30pm 12/12/2017 8: 23pm Troponin I 0.006 ng/mL 0-0.300 12/12/2017 7:30pm 12/12/2017 8:23pm Procedures Procedure Status Date Provider(s) Intramedullary rodding of tibia Completed 12/19/17 ELIEZER MEJIA MD Computed tomography of brain without radiopaque contrast Active 05/24/17 KATHY QUINTANA NP Computed tomography of cervical spine without contrast Active 05/24/17 KATHY QUINTANA NP Computed tomography of lumbar spine without contrast Active 05/24/17 KATHY QUINTANA NP Fine needle aspiration of thyroid with ultrasound guidance Active 09/21/17 BINDU GARCIA Echo guide for biopsy Active 09/21/17 BINDU GARCIA Computed tomography of soft tissues of neck without contrast Active 09/21/17 MING CARMEN MD Computed tomography of brain without radiopaque contrast Active 09/21/17 MING CARMEN MD Computed tomography of brain without radiopaque contrast Active 11/29/17 NASIM RILEY Encounters Encounter Location Arrival/Admit Date Discharge/Depart Date Attending Provider Discharged Inpatient (obs) [facility] 12/19/17 10:35am 3:12pm ELIEZER MEJIA MD Departed Emergency Room [facility] 12/13/17 11:15am 12/13 11:15am LAYA OROZCO MD Registered Clinic [facility] 11/29/17 2:57pm NASIM RILEY Discharged Inpatient [facility] 09/21/17 3:02pm 09/22/17 10:07pm LAYA OROZCO MD Registered Clinic [facility] 09/21/17 7:44am BINDU GARCIA Departed Emergency Room [facility] 05/24/17 10:13am 05/24 1:40pm RYAN HARRIS MD Registered Clinic [facility] 04/24/17 8:22am RIGOBERTO PATTON MD
--- OUTSIDE RECORDS SUMMARY | 2018-01-17 15:40 | XMS REPORT | Continuity of Care Document ---
Author Author [facility] Organization [facility] Address [address] [place] [address] Phone Unavailable Care Team Providers Care Diagnostic Cardiac Sonographer Name Role Phone NASIM RILEY PCP Insurance Providers Guarantor Vandana Pretty Address [address] [place] [address] Email [email or web address] Payer [facility] Ppo Policy Number [id number] Subscriber's Name Keily Pretty A Relationship 01 Group Number [id number] Group Name [employer] Effective Date 15 Payer [facility] Policy Number [id number] Subscriber's Name Vandana Pretty Relationship 18 Self / Same As Patient Group Number [id number] Group Name [employer] EMPLOYEE G Effective Date 10 Advance Directives Directive Response Recorded Date/Time Does the patient have an advance directive? Yes 12/19/17 12:38pm If yes, is advance directive on file with [facility]? No 12/19/17 12:38pm If not on file with [facility] will patient provide a copy? Yes 12/19/17 12:38pm Do you have a Directive to Physician? No 12/18/17 3:41pm Do you have a Medical Power of Court Administrator? Yes 12/18/17 3:41pm Do you have an [...] for Pain 30 Days 12/13/16 Hydrocodone Bit/Acetaminophen ([place] 7.5-325 Tablet) 1 Each Tablet 1 Ea [...] Oral Twice A Day Discontinued Hydrocodone Bit/Acetaminophen ([place] 10-325 Tablet) 1 Each Tablet, 1 Tab [...] CLEAR 12/12/2017 9:30pm 12/12/2017 9:49pm Urine Specific [place] 1.010 1.010-1.025 12/12/2017 9:30pm 2017 9:49pm Urine [...] Center 12/19/17 10:35am 3:12pm ELIEZER MEJIA MD Discharged Inpatient (obs) [facility] 12/12/17 11:39pm 11:15am LAYA OROZCO MD Registered Clinic St [...]
--- OUTSIDE RECORDS SUMMARY | 2018-01-26 15:36 | XMS REPORT | Continuity of Care Document ---
Author Author [facility] Organization [facility] Address [address] [place] [address] Phone Unavailable Care Team Providers Care Slot Machine Mechanic Name Role Phone NASIM RILEY PCP Insurance Providers Guarantor Vandana Pretty Address [address] [place] [address] Email [email or web address] Payer [facility] Ppo Policy Number [id number] Subscriber's Name Keily Pretty A Relationship 01 Group Number [id number] Group Name [employer] Effective Date 15 Payer [facility] Care Policy Number [id number] Subscriber's Name Vandana Pretty Relationship 18 Self / Same As Patient Group Number [id number] Group Name [employer] EMPLOYEE G Effective Date 10 Advance Directives Directive Response Recorded Date/Time Does the patient have an advance directive? Yes 12/19/17 12:38pm If yes, is advance directive on file with [facility]? No 12/19/17 12:38pm If not on file with [facility] will patient provide a copy? Yes 12/19/17 12:38pm Do you have a Directive to Physician? No 12/18/17 3:41pm Do you have a Medical Power of Drier Belt Conveyor? Yes 12/18/17 3:41pm Do you have an [...] for Pain 30 Days 12/13/16 Hydrocodone Bit/Acetaminophen ([place] 7.5-325 Tablet) 1 Each Tablet 1 Ea [...] Oral Twice A Day Discontinued Hydrocodone Bit/Acetaminophen ([place] 10-325 Tablet) 1 Each Tablet, 1 Tab [...] of Care Discharge Date 12/20/17 3:12pm Disposition HOME HEALTH SERVICE Instructions/Education Provided Post Operative Pain Prescriptions See [...] 5:25am Hematocrit 32.9 % L 34.2-44.1 12/13/2017 5:15am 12/13/2017 5:25am Mean Corpuscular Volume 89.9 fL 81-99 [...] 5:25am Eosinophils # (Auto) 0.1 0.0-0.4 12/13/2017 5:12/13/2017 5:25am Basophils # (Auto) 0.0 0.0-0.1 12/13/2017 5:12/13/2017 5:25am Absolute Immature Granulocyte (auto 0.07 x10e3/uL 0-0.1 12/13/2017 5: 1512/13/2017 5:25am Urine Color YELLOW YELLOW 12/12/2017 9:30pm 12/12/2017 9:49pm Urine Clarity CLEAR CLEAR 12/12/2017 9:30pm 12/12/2017 9:49pm Urine Specific [place] 1.010 1.010-1.025 12/12/2017 9:30pm 2017 9:49pm Urine [...] Filtration Rate > 60 ML/MIN 60- 12/13/2017 5:15 5:40am Ranges were taken from the National Kidney Disease Education Program and the National Kidney Foundation literature. Reference ranges: 60 or greater: Normal 16-59 (for 3 consecutive months): Chronic kidney disease 15 or less: Kidney failure Glucose Level 127 mg/dL H 74-118 12/13/2017 5:1512/13/2017 5:40am Calcium Level 7.9 mg/dL L 8.4-10.2 12/13/2017 5:1512/13/2017 5:40am Lactic Acid Level 21.0 MG/DL H 4.5-19.8 12/12/2017 7:45pm 12/12/2017 8: 18pm Total Bilirubin 0.5 mg/dL 0.2-1.2 12/13/2017 5:1512/13/2017 5:40am Aspartate Amino Transf (AST/SGOT) 73 IU/L H 5-34 12/13/2017 5:1512/13 5:40am Alanine Aminotransferase (ALT/SGPT) 41 IU/L 0-55 12/13/2017 5:1505/2018 5:40am Total Protein 6.0 g/dL # L 6.5-8.1 12/13/2017 5:1512/13/2017 5:40am Albumin 3.2 g/dL L 3.5-5.0 12/13/2017 5:1512/13/2017 5:40am Globulin 2.8 g/dL 2.3-3.5 12/13/2017 5:1512/13/2017 5:40am Albumin/Globulin Ratio 1.1 0.8-2.0 12/13/2017 5:1512/13/2017 5: 40am Alkaline Phosphatase 116 IU/L 40-150 12/13/2017 5:1512/13/2017 5: 40am Creatine Kinase 117 IU/L 29-168 12/12/2017 7:30pm 12/12/2017 8:13pm Creatine Kinase MB 1.60 ng/mL 0.00-5.00 12/12/2017 7:30pm 12/12/2017 8: 23pm Troponin I 0.006 ng/mL 0-0.300 12/12/2017 7:30pm 12/12/2017 8:23pm Procedures Procedure Status Date Provider(s) TREATMENT OF TIBIA FRACTURE Completed 12/19/17 ELIEZER MEJIA MD Computed tomography of brain without radiopaque contrast Active 05/24/17 KATHY QUINTANA PRODUCTION COUNTER Computed tomography of cervical spine without contrast [...] 10:35am 3:12pm ELIEZER MEJIA MD Discharged Inpatient [facility] 12/12/17 11:39pm 9:19am NASIM RILEY Registered Clinic [facility] [...]
== END 2017-12-13 10:31 | disposition home or self-care (01) ==
LOC: ER 18:20 → MED/SURG 23:36 → UNDOADMOB 23:39 → UNDOADMIN 23:39 → MED/SURG 23:39 → ERHOLD 23:39 → UNDOADMOB 12-13 00:34 → ERHOLD 12-13 00:34 → UNDODISIN 12-13 09:19 → ERHOLD 12-13 11:15 → UNDODISOB 12-13 11:15
PROVIDERS: ADMIT Family Medicine; ATTEND Family Medicine
DX: S82.255A Nondisplaced comminuted fracture of shaft of left tibia, initial encounter for closed fracture (principal); W01.0XXA Fall on same level from slipping, tripping and stumbling without subsequent striking against object, initial encounter; Y93.01 Activity, walking, marching and hiking; G89.29 Other chronic pain; G40.909 Epilepsy, unspecified, not intractable, without status epilepticus; I10 Essential (primary) hypertension; J45.909 Unspecified asthma, uncomplicated; E66.01 Morbid (severe) obesity due to excess calories; Z68.39 Body mass index [BMI] 39.0-39.9, adult; E87.2 Acidosis; I95.2 Hypotension due to drugs; T42.4X5A Adverse effect of benzodiazepines, initial encounter; N17.9 Acute kidney failure, unspecified
CPT/HCPCS: 29515; 36415; 36569; 71045; 73562; 73590; 73610; 80053; 80307; 81001; 82550; 82553; 83605; 84484; 85025; 87086; 99284; G0378 ×2; J1885; J7030 ×2

== ENCOUNTER 2017-12-19 06:34 | Observation (INO) | payer OTHER, BC ==
[~2017-12-19] VITALS: Ht 162.6 cm; Wt 104.3 kg
[2017-12-19] MEDS ORDERED: CEFAZOLIN SOD 1 GM VIAL ONE (06:41)
[2017-12-19] MEDS ORDERED: AMBIEN10 MG PO (06:49)
[2017-12-19] MEDS ORDERED: MUPIROCIN 2% OINT 22 GM TUBE ONE (09:02)
[2017-12-19] MEDS ORDERED: BACITRACIN 50,000 UNIT VIAL ONE (09:03)
[2017-12-19] MEDS ORDERED: BUPIVACAINE HCL 0.5% INJ 30 ML VIAL INJ ONE (09:03)
[2017-12-19] MEDS ORDERED: ZOLPIDEM TARTRATE 5 MG TAB PO PRN (09:30)
[2017-12-19] MEDS ORDERED: ACETAMINOPHEN 650 MG SUPP PR PRN (09:30)
[2017-12-19] MEDS ORDERED: DOCUSATE SODIUM 100 MG CAP PO PRN (09:30)
[2017-12-19] MEDS ORDERED: HYDROCODONE/APAP 5MG-325MG TAB PO PRN (09:30)
[2017-12-19] MEDS ORDERED: DIPHENHYDRAMINE HCL INJ 50 MG/ML VIAL IM/IV PRN (09:30)
[2017-12-19] MEDS ORDERED: PROMETHAZINE HCL (IM) 25 MG/ML VIAL INJ PRN (09:30)
[2017-12-19] MEDS ORDERED: FENTANYL CITRATE/PF 100MCG/2 ML INJ ONE ×2 (10:03→17:48)
[2017-12-19] MEDS ORDERED: ACETAMINOPHEN 1000 MG/100 ML 100 ML IV ONE (10:35)
[2017-12-19] MEDS: ACETAMINOPHEN 1000 MG/100 ML IV SCH ×2 (11:52→17:10)
[2017-12-19] MEDS: HYDROCODONE/APAP 7.5MG-325MG 1 EA TAB PO PRN ×2 (12:05→20:57)
[2017-12-19 12:37] VITALS: BP 160/79
[2017-12-19 12:41] VITALS: BP 160/79
[2017-12-19] MEDS: CEFAZOLIN SOD 1 GM VIAL IV SCH ×2 (13:30→21:06)
[2017-12-19] MEDS ORDERED: CEFAZOLIN SOD 1 GM/NS 50ML 50 ML IV SCH (14:00)
[2017-12-19] MEDS: KETOROLAC TROMETHAMINE 30 MG/ML VIAL IV PRN (14:15)
[2017-12-19] MEDS: ONDANSETRON HCL INJ 2 MG/ML VIAL IV PRN ×2 (14:16→20:56)
--- NOTE | 2017-12-19 15:18 | Operative Report ---
DATE OF PROCEDURE: December 19, 2017 ANDROID PLATFORM DEVELOPER: Gagan Badillo PA-C The patient was brought to the operating room for induction of anesthesia. Throughout this case, my PA's assistance was necessary for retraction of soft tissue and positioning of the extremity. This allows for efficient and technically successful execution of the operation and is considered medically necessary. PREOPERATIVE DIAGNOSIS: Left tibia fracture. POSTOPERATIVE DIAGNOSIS: Left tibia fracture. PROCEDURE: Closed reduction and intramedullary nail placement, left tibia. INDICATIONS: The patient is a 57-year-old lady who has an oblique fracture of her tibial shaft. The findings and options have been discussed. The risks and benefits of surgical intervention have been discussed. She states she understands and wishes to proceed. DESCRIPTION OF PROCEDURE: The patient was brought to the operating room and placed under general anesthetic. She received prophylactic antibiotics in the holding area. Her left lower extremity was prepped and draped in a sterile manner. A preoperative time out was performed. The extremity was exsanguinated and a proximal tourniquet was inflated to 300 mmHg. An incision was made over the anterior aspect of the knee just inferior to the patellar tendon. This was carried down through the patellar tendon. A curved awl was used to enter the tibial canal just proximal to the tibial tubercle. A guide pin was placed. This was advanced across the fracture site and checked in the AP and lateral plane using a C-arm image intensifier. The guide pin was then over-reamed. A 9.5 and 10 mm reamer had significant endosteal clatter. I elected to use an 8.5 mm x 34 cm all titanium tibial nail, made by [employer]. This was advanced down the canal and across the fracture site. This was locked proximally and distally. Final x-rays showed an anatomic reduction and good positioning of all the hardware. The wounds were irrigated and closed. The patellar tendon was closed with 0 Vicryl. The skin was closed with subcuticular Vicryl, Mastisol, and Steri-Strips. She was extubated and transported to the recovery room in stable condition. There was no blood loss and all needle and sponge counts were correct. Job#: [id number] VAS
[2017-12-19] MEDS ORDERED: ZOLPIDEM TARTRATE 10 MG TAB PO PRN (15:45)
[2017-12-19] MEDS ORDERED: AMBIEN 12.5 MG PO PRN (15:45)
[2017-12-19] MEDS ORDERED: PROMETHAZINE HCL 25 MG TAB PO PRN (15:45)
[2017-12-19] MEDS ORDERED: LINACLOTIDE 145 MCG CAPSULE PO PRN (15:45)
[2017-12-19] MEDS ORDERED: FUROSEMIDE 40 MG TAB PO PRN (15:45)
[2017-12-19 16:00] VITALS: BP 124/67
[2017-12-19] MEDS: CELECOXIB 100 MG CAP PO SCH (17:10)
[2017-12-19] MEDS: ASPIRIN 325 MG TAB PO SCH (17:10)
[2017-12-19] MEDS ORDERED: KETOROLAC TROMETHAMINE 30 MG/ML VIAL ONE (17:43)
[2017-12-19] MEDS ORDERED: ONDANSETRON HCL INJ 2 MG/ML VIAL ONE (17:43)
[2017-12-19] MEDS ORDERED: PROPOFOL IV EMULSION 10 MG/ML 20 ML VIAL ONE (17:43)
[2017-12-19] MEDS ORDERED: SEVOFLURANE INHAL SOLN 250 ML PEN BTL ONE (17:43)
[2017-12-19] MEDS ORDERED: DEXAMETHASONE SOD PHOS INJ 4 MG/ML VIAL ONE (17:43)
[2017-12-19] MEDS ORDERED: LIDOCAINE HCL 2% LOCAL INJ 5 ML SDV VIAL INJ ONE (17:43)
[2017-12-19] MEDS ORDERED: MIDAZOLAM HCL 2 MG/2 ML VIAL ONE (17:48)
[2017-12-19 20:00] VITALS: BP 124/60
[2017-12-19] MEDS: LAMOTRIGINE 100 MG TAB PO SCH (21:05)
[2017-12-19] MEDS: GABAPENTIN 100 MG CAP PO SCH (21:05)
[2017-12-20] VITALS: BP 121/67
[2017-12-20] MEDS: KETOROLAC TROMETHAMINE 30 MG/ML VIAL IV PRN ×2 (00:33→09:14)
[2017-12-20] MEDS: ACETAMINOPHEN 1000 MG/100 ML IV SCH ×2 (00:33→05:26)
[2017-12-20] MEDS: CEFAZOLIN SOD 1 GM VIAL IV SCH ×2 (05:23→13:55)
[2017-12-20 08:50] VITALS: BP 134/77
[2017-12-20] MEDS ORDERED: TOPIRAMATE 25 MG TAB PO SCH (09:00)
[2017-12-20] MEDS: ASPIRIN 325 MG TAB PO SCH (09:13)
[2017-12-20] MEDS: LAMOTRIGINE 100 MG TAB PO SCH ×2 (09:13→15:02)
[2017-12-20] MEDS: CELECOXIB 100 MG CAP PO SCH (09:13)
[2017-12-20] MEDS: GABAPENTIN 100 MG CAP PO SCH ×2 (09:13→15:02)
[2017-12-20] MEDS ORDERED: ACETAMINOPHEN 1000 MG/100 ML IV PRN (09:30)
[2017-12-20 12:37] VITALS: BP 134/63
[2017-12-20] MEDS: HYDROCODONE/APAP 7.5MG-325MG 1 EA TAB PO PRN (12:58)
[2017-12-20] MEDS ORDERED: NORCO 7.5-3251 EACH PO (14:02)
== END 2017-12-20 15:12 | disposition home health service (06) ==
LOC: OR 06:34 → MED/SURG 10:35 → INTOOBSV 10:35
PROVIDERS: ADMIT Specialist; ATTEND Specialist
DX: S82.252A Displaced comminuted fracture of shaft of left tibia, initial encounter for closed fracture (principal); Z91.041 Radiographic dye allergy status; Z91.013 Allergy to seafood; Z91.048 Other nonmedicinal substance allergy status
CPT/HCPCS: 27759; 76000; 97116 ×2; 97161; G0378 ×2; G8978; G8979; J0690 ×2; J1100; J1885 ×2; J2001; J2250; J2405

== ENCOUNTER → 2018-03-13 | Outpatient (CLI) | payer OTHER, BC ==
[~2018-03-13] MED LIST changes: +AMBIEN10 MG PO; +NORCO 7.5-3251 EACH PO
--- NOTE | 2018-03-13 11:32 | Diagnostic Imaging Report ---
EXAM: DXA BONE DENSITY INDICATIONS: Postmenopausal screening COMPARISON: None. FINDINGS: Left femoral neck bone mineral density (BMD) (g/cm2):0.816 Femur T-score (standard deviation relative to young adult mean BMD): -0.3 Femur Z-score (standard deviation relative to age-matched control group):0.8 Lumbar bone mineral density (BMD) (g/cm2):1.129 Lumbar T-score (standard deviation relative to young adult mean BMD): 0.7 Lumbar Z-score (standard deviation relative to age-matched control group):1.9 CONCLUSION: WHO bone mineral classification: Normal World Health Organization Classification: *The Z-score is provided for informational purposes. The T-score is preferable for clinical decisions. RECOMMENDATIONS: Normal \T\ Osteopenia:Calcium supplementation, daily multiple vitamins, and adequate exercise as preventive measures against osteoporosis. Osteoporosis \T\ Severe Osteoporosis:In addition to the above, pharmacologic therapy. Dictated by: Ángel Peoples M.D. on 03/13/2018 at 11:34 Electronically approved by: Ángel Peoples M.D. on 03/13/2018 at 11:34
== END ==
LOC: DX 10:51
PROVIDERS: ATTEND Specialist
DX: S82.842G Displaced bimalleolar fracture of left lower leg, subsequent encounter for closed fracture with delayed healing (principal)
CPT/HCPCS: 77080

== ENCOUNTER → 2018-08-29 | Outpatient (CLI) | payer OTHER, BC ==
--- NOTE | 2018-08-30 08:30 | Diagnostic Imaging Report ---
PROCEDURE: US THYROID COMPARISON: Ultrasound FNA thyroid images 09/21/2017 and outside thyroid ultrasound report 08/07/2017. INDICATIONS:NODULES TECHNIQUE: Transverse and longitudinal [place]-scale sonographic images of the thyroid were obtained and supplemented with color doppler. FINDINGS: Right thyroid lobe: Measures 5 x 3 x 3.3 cm. Two right sided thyroid nodules are visualized. One solid nodule is in the mid pole measuring 3.3 x 2.7 x 2.7 cm and predominately isoechoic. The nodule is not taller than wide. The nodule has a smooth margin and no echogenic foci. The nodule previously measured 2.7 x 2.3 x 2.4 cm per images from FNA on 09/21/17. There is an additional 1.6 x 0.8 x 1.2 cm solid nodule which is mildly heterogeneous and hypoechoic and not taller than wide. The nodule has smooth margins and no echogenic foci. Left thyroid lobe: Measures 4.7 x 1.8 x 2 cm. Isthmus: Measures 0.4 cm. CONCLUSION: Right mid pole thyroid nodule (TR-RADS 3), and previously meeting criteria for FNA. The nodule has slightly grown in size from the prior study. Note is made that FNA was performed on 09/21/17 and demonstrated no evidence of malignancy and favored to represent nodular hyperplasia per pathology report. Additional right sided thyroid nodule which does not meet criteria for FNA. Dictated by: ANGI LYMAN M.D. on 08/30/2018 at 8:39 Electronically approved by: ANGI LYMAN M.D. on 08/30/2018 at 8:39
== END ==
LOC: US 12:19
PROVIDERS: ATTEND Otolaryngology
DX: E04.2 Nontoxic multinodular goiter (principal)
CPT/HCPCS: 76536

== ENCOUNTER → 2018-10-11 | Outpatient (CLI) | payer OTHER, BC ==
--- NOTE | 2018-10-11 19:58 | Diagnostic Imaging Report ---
Bone Scan, three-phase Reason for exam: 56 F s/p fractures left tibia /left ankle in 03/2016 and again in 12/2017. Alpesh placed between left knee and ankle in 12/2017. Now presents with bilateral ankle swelling. Radiopharmaceutical: Tc-99m MDP 26 mCi Comparison: Labeled white blood cell study of feet and ankles 04/24/2017; left ankle radiograph 12/12/2017 Following intravenous administration of the radiopharmaceutical, dynamic flow and immediate blood pool images of the distal lower legs, ankles and feet followed by delayed spot images were obtained. Flow and blood pool images show subtly increased tracer diffusely in the left lower extremity compared to the right with three focal areas of increased tracer activity in the left tibial shaft distally and in the left distal tibial metaphysis. No abnormal accumulation of tracer is seen in the right lower leg, ankle or foot. The delayed images show focal increased tracer at two sites in the left tibial shaft distally and in a single site at the left distal tibial metaphysis. These sites are clearly within bone. No abnormal accumulation of tracer is seen in the right lower leg, ankle or foot. Impression: 1. The focal areas of increased osteoblastic activity in the left tibial shaft and distal metaphysis are worrisome for chronic osteomyelitis, however, 3-phase bone scan lacks specificity in the setting of complicated osteomyelitis. A labeled white blood cell study would be appropriate to add specificity to the evaluation. 2. No scan evidence of osteomyelitis or trauma in the right distal lower extremity. Signed by: Dr. Deirdre Mary M.D. on 10/11/2018 7:55 PM
== END ==
LOC: NM 07:41
PROVIDERS: ATTEND Internal Medicine Infectious Disease
DX: L30.8 Other specified dermatitis (principal); R60.0 Localized edema
CPT/HCPCS: 78315; A9503

== ENCOUNTER → 2018-11-02 | Outpatient (CLI) | payer OTHER, BC ==
--- NOTE | 2018-11-02 12:56 | NUR ---
Patient Name: Vandana Walker: 64 Age/Sex: 58/femaleOrdering Physician: Ángel Painter MD Clinical Swallow Evaluation/Initial Treatment Session Patient is a 58 year old female with diagnosis of dysphagia and choking with history of MS, benign growing thyroid tumor, nerve stimulator and pain pump for injury to L-4 to L-5, and GERD. Patient completed a modified barium swallow (MBS) study on 11/02/18. Thin liquids, nectar thick liquids, thin puree, thick puree, mixed texture and cracker trials administered. Pt presented with mild dysphagia c/b penetration of thin liquids, chin tuck not effective, moderate valleculear residue following hard solids, piecemeal deglutition of mixed textures. Throat clear an effective strategy in clearing penetration of thin liquids and alternating liquids and solids clears valleculear residue to min/trace. However with diagnosis of MS it is believed this condition will worsen over time. Dysphagia judged to be secondary to tongue base weakness, slight reduction of laryngeal excursion and risk to airway. Recommendation made for Neuromuscular Electrical Stimulation (NMES) with VitalStim Therapy and traditional dysphagia therapy with pharyngeal exercises with GI consultation. Pt was seen with no family present. Oral motor exam revealed function that was grossly within normal limits. Patient tolerates room air. Hearing appeared to be WFL. Speech and language skills were functional. Patient reports regular hiccoughing and choking after meals with globus sensation. Provided extensive education re: need for therapy, purpose of exercises and NMES, and future plan of care. Pt indicated understanding. Education provided as indicated. All questions were answered. Pt indicated that they can attend therapy 3x/week x 4 weeks Impressions: Pt presents with mild dysphagia characterized by penetration of thin liquids and moderate pharyngeal residue. Pt is an excellent candidate for dysphagia exercises and NMES for improvement of strength and coordination of swallow. Recommendations: 1.Dysphagia therapy to include traditional exercises and NMES 3X/week for 4 weeks for a total of 12 treatment sessions 2.Home exercise program 3.Repeat MBS in 4 weeks with new goals to be determined at that time Search Specialist Goal: Pt will tolerate least restrictive diet without s/s of aspiration as judged by an objective evaluation. Short Term Goals: 1.Pt will complete 3 repetitions of a set of dysphagia exercises to improve laryngeal elevation, base of tongue retraction, and laryngeal closure, 10 repetitions per exercise, with minimal cues. 2.Pt will tolerate NMES for 45 60 minutes with no clinical s/s of aspiration to improve strength of pharyngeal constrictors, hyolaryngeal excursion, and safety with po intake. 3.Pt will complete home dysphagia exercise program targeting laryngeal elevation, base of tongue strength, and cricopharyngeal function independently. 4.Pt will follow aspiration precautions with independence. 5.Pt will participate in a repeat Modified Barium Swallow study to objectively re-assess swallow safety and function and determine safest diet. Sahara Saleh M.S. CCC-SENIOR [employer] LEAD Date of Session: 11/02/18 MBS/Dysphagia Evaluation X 30 minutes Physicians signature below certifies medical necessity for these skilled interventions Physician SignatureDate G-code Modifiers: Current: [id number] Goal: [id number] NOMS Rating for Swallowing: Level 6
--- NOTE | 2018-11-08 16:40 | Diagnostic Imaging Report ---
PROCEDURE: X-RAY MODIFIED BARIUM SWALLOW COMPARISON: None. INDICATION: Dysphagia, history of MS Radiation Details: Fluoroscopy time: 1.9 minutes Cumulative dose: 10.2 mGy Dose area product: 3.32 Gy.cm2 DISCUSSION: Fluoroscopic examination was performed in conjunction with speech pathology during swallowing a variety of thin and thick liquid consistencies. Provided images demonstrate penetration with thin liquids. No evidence of aspiration. Moderate vallecular residue is noted. CONCLUSION: Modified barium swallow demonstrating penetration with thin liquids without evidence of aspiration. Please refer to the speech pathology report for further details. Signed by: Dr. Adrian White MD on 11/08/2018 4:37 PM
== END ==
LOC: DX 08:41
PROVIDERS: ATTEND Otolaryngology
DX: R13.13 Dysphagia, pharyngeal phase (principal)
CPT/HCPCS: 74230; 92611; 97139; G8996; G8997; G8998

== ENCOUNTER 2022-09-15 10:04 | Emergency (ER) | payer BC, OTHER ==
[~2022-09-15] VITALS: Ht 162.6 cm; Wt 104.3 kg
== END 2022-09-15 12:38 | disposition home or self-care (01) ==
LOC: ER 10:19
DX: M79.662 Pain in left lower leg (principal); M79.661 Pain in right lower leg; R60.9 Edema, unspecified; F41.9 Anxiety disorder, unspecified; F32.A Depression, unspecified; M54.9 Dorsalgia, unspecified; G89.29 Other chronic pain
CPT/HCPCS: 93970; 99283